=== PATIENT | male | born 1975 | race Caucasian/White ===

== ENCOUNTER 2023-05-06 11:50 | Observation (INO) | payer OTHER, SELFPAY ==
[2023-05-06] VITALS (8 sets, daily range): BP systolic 120–158; BP diastolic 71–100; PULSE 65–85; RESP 15–20; TEMP 36.4–36.6; O2SAT 94–98; BMI 36.1
--- NOTE | ~2023-05-06 | XR_ITS ---
EXAMINATION: XR chest 1V 05/06/2023 12:23 INDICATION: Double vision. Slurred speech. Weakness. PROCEDURE: AP view of the chest COMPARISON: No prior studies for comparison. FINDINGS: The lungs are clear. The cardiomediastinal silhouette is within normal limits. There are no pleural effusions. There is no pneumothorax suspected. IMPRESSION: 1: NO ACUTE CARDIOPULMONARY DISEASE. Reviewed, dictated and finalized at location B. AL KEEPER
--- NOTE | ~2023-05-06 | MR_ITS ---
EXAMINATION: MR brain/brain stem wo/w con, MR orbits face neck wo/w con DATE: 05/07/2023 08:04 INDICATION: Diplopia and blurred vision from the right eye. TECHNIQUE: 1. Magnetic resonance imaging (MRI) of the brain and brainstem was performed without and with 20 mL M ultihance intravenous contrast. Sequences included sagittal and axial T1-weighted SE, axial diffusion -weighted FS SE, , axial T2-weighted FLAIR, and axial T2-weighted FSE. Postcontrast axial and coronal T1-weighted SE was obtained. Apparent diffusion coefficient (ADC) maps were created. 2. MRI of the face and orbits was performed without and with 20 mL Multihance intravenous contrast ut ilizing the same contrast bolus. Small [id number] sequences of the orbits included coronal and axi al T2-weighted FS FSE and T1-weighted FSE and postcontrast small [id number] axial and coronal T1- weighted FS FSE. COMPARISON: Head CT and CT angiogram dated 05/06/2023 FINDINGS: There is a small focus of restricted diffusion and associated increased T2 signal in the left thalamu s consistent with acute infarct. There is a focus of susceptibility artifact in the medial anterior r ight frontal lobe which is most likely related to chronic microhemorrhage in setting of a cavernoma w ith an associated small developmental venous anomaly at this location on the post contrast imaging. N o acute intracranial hemorrhage or abnormal intracranial mass lesion. There are a few scattered small foci of nonspecific increased T2-weighted signal intensity in the cerebral white matter, predominant ly involving the deep and periventricular white matter which is within normal limits for age.. There are no intraparenchymal signal abnormalities seen on the other pulse sequences. The ventricles are sy mmetric and normal in size. There are no abnormal extra-axial fluid collections. Flow voids are seen in the cerebral arteries on the T2-weighted sequences consistent with their expected patency. Visuali zed orbits and soft tissues are unremarkable. The optic chiasm, pituitary and midline pituitary stalk appear unremarkable. Basal cisterns are patent. Centimeters in the right frontal developmental venou s anomaly there are no areas of abnormal enhancement on the post contrast images. IMPRESSION: 1. Small acute infarct in the left thalamus. 2. 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 Reviewed, dictated and finalized at location A. AID IMPRESSION: 1. Small acute infarct in the left thalamus. 2. 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
--- NOTE | ~2023-05-06 | CT_ITS ---
EXAMINATION: CTA BRAIN/CAROTID DATE: 05/06/2023 15:09 INDICATION: Diplopia, ataxia and difficulty finding words TECHNIQUE: Computed tomographic angiography (CTA) of the head and neck was performed with 100 mL Omni paque-350 intravenous contrast. Multiplanar reconstructions and maximum intensity projection 3D-recon structions of the carotid arteries and of the intracranial arteries were created by the technologist on a separate workstation. Automated exposure control and iterative reconstruction technique were emp loyed.The dose-length product was 1221.60 mGy-cm. COMPARISON: None. FINDINGS: Carotid arteries: Thoracic aorta is normal in caliber with no atherosclerotic plaque or dissection. There is no evident atherosclerotic plaque with 0% stenosis of the right and left carotid bulbs relative to normal dista l artery lumen diameter (NASCET criteria). The right vertebral artery is dominant with a diminutive l eft vertebral artery. Cervical soft tissues are unremarkable. Visualized upper lungs are clear. Mild cervical spondylosis. Intracranial arteries There is no hemodynamically significant stenosis in the vertebral, basilar and internal carotid arter ies. The right vertebral artery is dominant although still relatively small in diameter as is the bas ilic artery relative to the bilateral internal carotid arteries. The left posterior cerebral artery i s supplied via a patent left posterior communicating artery. The right posterior cerebral artery is s upplied primarily via a patent right posterior communicating artery with patent but diminutive right P1 segment. No definitive left P1 segment appreciated. The bilateral A1 segments are patent. There is also a patent anterior communicating artery. There are no aneurysms identified. There are also large r caliber patent bilateral posterior communicating arteries Cerebral arterial arborization appears sy mmetric. No abnormally enhancing brain lesions identified. IMPRESSION: 1. 0% stenosis of the right and left carotid bulbs relative to normal distal artery lumen diameter (N ASCET criteria). 2. Normal anatomic variation of the [place] as detailed above. No cerebral arterial hemodyna caridad significant stenosis, aneurysm or thrombosis. Reviewed, dictated and finalized at location A. AL CARE SPECIALIST IMPRESSION: 1. 0% stenosis of the right and left carotid bulbs relative to normal distal ar sara lumen diameter (NASCET criteria). 2. Normal anatomic variation of the [place] as detailed above. No cere bral arterial hemodynamic significant stenosis, aneurysm or thrombosis.
--- NOTE | ~2023-05-06 | CT_ITS ---
Non-contrast Head CT History: Slurred speech Technique: Axial non-contrast imaging of the brain was performed. Dose reduction technique was used on this scan by utilizing automated exposure control and iterative reconstruction technique. The dose -length product (DLP) was 605.33 mGy-cm. Findings: There is no evidence of intracranial hemorrhage, mass lesion, or acute infarct. Brain par enchyma appears normal. The ventricles and subarachnoid spaces are normal in size. The calvarium ap pears normal. The visualized paranasal sinuses and mastoid air cells are clear. Impression: No significant abnormality seen. Reviewed, dictated and finalized at location . NT PARTNER Impression: No significant abnormality seen.
--- NOTE | 2023-05-06 12:02 | ECG_ITS ---
Measurements Intervals [place] Rate: 70 P: 64 OK: 170 QRS: 3 QRSD: 96 T: 30 QT: 372 QTc: 404 Interpretive Statements SINUS RHYTHM INCOMPLETE RIGHT BUNDLE BRANCH BLOCK BORDERLINE R WAVE PROGRESSION, ANTERIOR LEADS BORDERLINE T WAVE ABNORMALITY- INF/LAT LEADS BASELINE ARTIFACT- II, III BORDERLINE ECG NO PREVIOUS ECG AVAILABLE FOR COMPARISON Electronically Signed On 05-06-2023 12:13:26 SPONGE MAKER by Aramis Thomas D.O.
[2023-05-06 12:16] LABS: Glucose Point of Care 88 mg/dl (65-105)
[2023-05-06 12:26] LABS: Basophils Absolute Auto 0.1 K/mm3 (0.0-0.1); Basophils Percent Auto 0.9 % (0.2-1.2); Eosinophils Absolute Auto 0.1 K/mm3 (0-0.3); Hematocrit 49.2 % (42.0-52.0); Hemoglobin 16.6 g/dL (14.0-18.0); Immature Granulocyte Absolute 0.03 K/mm3 (0.00-0.031); Immature Granulocyte Percent A 0.4 % (0-0.5); Lymphocytes Absolute Auto 2.45 K/mm3 (0.9-3.2); Lymphocytes Percent Auto 36.3 % (18.3-44.2); Mean Corpuscular HGB Conc 33.7 g/dl (32-36); Mean Corpuscular Hemoglobin 30.5 pg (26-34); Mean Corpuscular Volume 90.3 fl (80-100); Mean Platelet Volume 10.5 fl (7.4-10.4); Monocytes Absolute Auto 0.9 K/mm3 (0.1-0.6); Monocytes Percent Auto 12.7 % (2.6-8.5); Neutrophils Absolute Auto 3.3 K/mm3 (1.3-6.7); Neutrophils Percent Auto 48.7 % (45.5-73.1); Platelet Count Result 244 k/mm3 (150-375); Red Blood Count 5.45 M/mm3 (4.6-6.20); Red Cell Distribution Width 12.9 % (11.5-14.5); White Blood Count 6.8 K/mm3 (4.5-10.0)
[2023-05-06 12:36] LABS: Alanine Aminotransferase 75 U/L (6-50); Albumin Level 4.6 g/dL (3.5-5.1); Alkaline Phosphatase 66 U/L (38-126); Anion Gap 9 mmol/L (8-16); Aspartate Amino Transferase 42 U/L (17-59); Bilirubin,Total 0.6 mg/dL (0.2-1.3); Blood Urea Nitrogen 15 mg/dL (9-20); Calcium 9.2 mg/dL (8.4-10.2); Carbon Dioxide 25 mmol/L (22-30); Chloride 104 mmol/L (98-107); Estimated CRCL calculation 100 ml/min; Estimated Glomerular Filt Rate > 60; Glucose 86 mg/dL (65-110); INR 0.9; Prothrombin Time 12.5 Seconds (11.1-14.7); Sodium 138 mmol/L (137-145)
[2023-05-06 12:47] LABS: Troponin I < 0.012 ng/mL (0.000-0.034)
--- NOTE | 2023-05-06 14:40 | ED.NEUROSD ---
HPI - Neuro Symptoms/Deficit General Chief Complaint: Suspected CVA Stated Complaint: neuro sx Time Seen by Provider: 05/06/23 13:28 History of Present Illness HPI Narrative: Patient is a 48-year-old male with a history of hypertension for presenting with double vision. Patient's family is at bedside a and helps with the history. Patient was in his normal state of health last night before bed. He went to bed at 9:30 p.m.. He woke up today at 10:00 a.m.. His family noticed with he said several sentences today that did not make sense. He started complaining of double vision and a feeling of being off balance. States that the double vision goes away if he closes 1 eye. He denies headache, numbness or weakness, neck or back pain, fevers. Denies eye pain or swelling. His family thinks that the right side of his face looks slightly droopy. No slurred speech. No further complaints. Related Data Allergies Allergy/AdvReac Type Severity Reaction Status Date / Time Penicillins Allergy Unknown Rash Verified 05/06/23 12:11 Review of Systems Review of Systems: All systems reviewed & are unremarkable except as noted in HPI and below PMFSH Past Medical History Medical History (Updated 05/12/23 @ 12:08 by Anai Dietz MD) Acquired hypothyroidism Hypertension Surgical History Surgical History (Updated 05/06/23 @ 23:02 by Arielle Marrero PA-C) History of cholecystectomy History of partial thyroidectomy History of vasectomy Family History Family History Mother Hypertension Family history of malignant neoplasm of ovary Father Carcinoma of colon Family history of lung cancer Sibling No problems noted. Social History Social History (Updated 05/06/23 @ 23:02 by Arielle Marrero PA-C) Social History: Surrogate medical decision maker: Sheila Varma, spouse. Code status: Full code. Smoking status: Never smoker Second hand tobacco smoke exposure: No Alcohol intake: never Substance use: never Substance use type: does not use Do You Feel Safe in your Home?: Yes Lack of Transportation: No Lack of Food: Never True Current Housing: I Have Housing Concerned About Future Housing: No Difficulty Paying Gas/Electric Bills: No Difficulty Paying for Meds: No Currently Unemployed: No Education: Associate Degree Difficulty w/ Childcare or Family Care: No Living arrangements: with family Additional living arrangements comments: Lives with family in [place]. 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 Spiritual care concerns: No Exam Narrative: GENERAL: Well-appearing, well-nourished, and in no acute distress. HEAD: Normocephalic, atraumatic. EYES: PERRLA. unable to look up in either eye though more severe on L ENT: Nares clear, no rhinorrhea or epistaxis. Mucous membranes moist. NECK: Supple. CHEST: Clear to auscultation. No respiratory distress. HEART: Regular rate and rhythm ABDOMEN: Soft, nontender, nondistended EXTREMITIES: Normal range of motion. No edema. SKIN: Warm, dry, no rash. NEURO: Alert and oriented x3. No pronator drift, finger to nose is intact, 5/5 strength in all extremities, no sensory deficits, no aphasia or dysarthria PSYCH: Normal mood and affect. Course Vital Signs Vital signs: Vital Signs Temperature 97.9 F 05/06/23 11:52 Pulse Rate 67 05/06/23 11:52 Respiratory Rate 20 05/06/23 11:52 Blood Pressure 158/90 H 05/06/23 11:52 Pulse Oximetry 98 05/06/23 11:52 Oxygen Delivery Room Air 05/06/23 11:52 Temperature 98.4 F 05/08/23 04:44 Pulse Rate 86 05/08/23 12:00 Respiratory Rate 16 05/08/23 04:44 Blood Pressure 137/79 05/08/23 04:44 Pulse Oximetry 92 05/08/23 04:44 Oxygen Delivery Room Air 05/08/23 09:44 MDM - Neuro Symptoms/Deficit MDM Narrative
--- NOTE | 2023-05-06 18:52 | PC.NURSE ---
This patient, Oscar Varma, was admitted to Medical Room 342-01. Patient/family oriented to hospital policies and general routines including ID bracelet, bed and alarms, visiting hours, pain management, procedures, bathroom and other care routines, personal items, smoking policy, room service/diet, and visiting hours. Information on how to activate the Rapid Response Team has been discussed. Patient/Family are encouraged to report perceived risks to care and to ask questions if they do not understand what they are told or what they should do.
--- NOTE | 2023-05-06 20:01 | PM.IMHP ---
H&P: HPI History of Present Illness Date/Time: 05/06/23 21:00 Chief Complaint: Double vision. Narrative: This is a pleasant 48-year-old male with hypertension and history of benign thyroid nodule status post partial thyroidectomy no longer on levothyroxine who presented to the emergency department via private vehicle from home for evaluation of double vision. The patient provides the following history. He was in his usual state of health when he went to bed last night. This morning he awoke with double vision, feelings of being off balance, and mild speech issues (brief episode where he had difficulty speaking with reports of speaking gibberish). The double vision resolves when he closes 1 eye or the other. He denies overt vertigo, facial droop, difficulty swallowing, focal weakness, and paresthesias. He has never had similar symptoms. No history of head trauma, recent infection, eye surgery, strabismus, Graves disease, multiple sclerosis, myasthenia gravis, stroke, etc.. He also denies palpitations and sensations of irregular heartbeat. CMP and CBC were pretty unremarkable. CTA of the head and neck showed no significant findings and head CT was normal. He is being admitted in this setting for close monitoring and neurology consultation. Review of Systems Review of Systems: Twelve systems were reviewed and are negative except for as per HPI. [facility] Past Medical History Medical History (Updated 05/06/23 @ 23:03 by Arielle Marrero PA-C) Acquired hypothyroidism Hypertension Surgical History Surgical History (Updated 05/06/23 @ 23:02 by Arielle Marrero PA-C) History of cholecystectomy History of partial thyroidectomy History of vasectomy Family History Family History Mother Hypertension Family history of malignant neoplasm of ovary Father Carcinoma of colon Family history of lung cancer Sibling No problems noted. Social History Social History (Updated 05/06/23 @ 23:02 by Arielle Marrero PA-C) Social History: Surrogate medical decision maker: Sheila Varma, spouse. Code status: Full code. Smoking status: Never smoker Second hand tobacco smoke exposure: No Alcohol intake: never Substance use: never Substance use type: does not use Do You Feel Safe in your Home?: Yes Lack of Transportation: No Lack of Food: Never True Current Housing: I Have Housing Concerned About Future Housing: No Difficulty Paying Gas/Electric Bills: No Difficulty Paying for Meds: No Currently Unemployed: No Education: Associate Degree Difficulty w/ Childcare or Family Care: No Living arrangements: with family Additional living arrangements comments: Lives with family in [place]. 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 Spiritual care concerns: No Meds Home Medications and Allergies Home Medications Medication Instructions Recorded Confirmed Type losartan 50 mg tablet 50 mg PO DAILY #90 tabs 02/15/23 05/06/23 Rx Allergies Allergy/AdvReac Type Severity Reaction Status Date / Time Penicillins Allergy Unknown Rash Verified 05/06/23 12:11 Vital Signs Vital Signs - 24 hr 05/06/23 11:52 05/06/23 12:33 05/06/23 13:07 Temperature 97.9 F Pulse Rate 67 65 74 Respiratory Rate 20 16 15 Blood Pressure 158/90 H 141/100 H 128/89 Pulse Oximetry 98 95 97 Oxygen Delivery Room Air 05/06/23 15:40 05/06/23 16:05 05/06/23 17:53 Temperature Pulse Rate 68 74 85 Respiratory Rate 18 17 20 Blood Pressure 155/100 H 120/71 155/84 H Pulse Oximetry 94 96 94 Oxygen Delivery Exam Narrative: General: Well-developed male in the semi-Rodriguez position in bed in no acute distress. Weight: 114.1 kg. BMI: 36.1. HEENT: Normocephalic, atraumatic. PERRL, EOMI. Sclera anicteric. Conjunctiva mildly injected. Oral mucosa moist. Neck:
[2023-05-07] VITALS (8 sets, daily range): BP systolic 137–163; BP diastolic 79–99; PULSE 61–80; RESP 15–16; TEMP 36.4–36.7; O2SAT 92–94
--- NOTE | 2023-05-07 | ECHO_ITS ---
Patient Info Name: Oscar Varma Age: 48 years : 1975 Gender: Male Ht: 63 in Wt: 240 lbs BSA: 2.26 m2 HR: 61 bpm BP: 155 / 94 mmHg Heart Rhythm: Sinus Rhythm Technical Quality: Good Exam Date: 05/07/2023 9:01 AM Exam Location: Echo Lab Patient Status: Inpatient Admit Date: 05/06/2023 Staff Ordering Physician: James Campbell MD Jewelry Dipper: Evelin Yu RDCS Attending Provider: James Campbell MD Exam Type: CA echo doppler color flow Study Info Indications - diplopia Complete two-dimensional, color flow and Doppler transthoracic echocardiogram is performed. Summary 1. Complete two-dimensional, color flow and Doppler transthoracic echocardiogram is performed. 2. Left ventricular chamber dimension is normal. 3. Left ventricular systolic function is normal, estimated at 55-60%. 4. There is moderately increased left ventricular wall thickness. 5. The left ventricular diastolic function is grade I diastolic dysfunction. 6. There is mild mitral valve regurgitation. 7. The mitral valve has thickened leaflets. 8. There is mild tricuspid valve regurgitation. 9. The aortic root size at the sinus of Valsalva is mildly dilated. 10. The prox ascending aorta size is moderately dilated. Left Ventricle Left ventricular chamber dimension is normal. Left ventricular systolic function is normal, estimated at 55-60%. There is moderately increased left ventricular wall thickness. The left ventricular diastolic function is grade I diastolic dysfunction. Right Ventricle Right ventricular chamber dimension is normal. Right ventricular systolic function is normal. Left Atria Left atrial chamber dimension is normal. Right Atria Right atrial chamber dimension is normal. Atrial Septum Intact interatrial septum visualized by color flow imaging. Aortic Valve The aortic valve is trileaflet. There is mild aortic valve sclerosis. There is no aortic valve stenosis. There is trace aortic valve regurgitation. Pulmonic Valve The pulmonic valve is normal. There is no pulmonic valve stenosis. There is trace pulmonic regurgitation. Mitral Valve The mitral valve has thickened leaflets. There is no mitral valve stenosis. There is mild mitral valve regurgitation. Tricuspid Valve The tricuspid valve leaflets are normal. There is no significant tricuspid valve stenosis. There is mild tricuspid valve regurgitation. No pulmonary hypertension, estimated pulmonary arterial systolic pressure is 22 mmHg. Pericardium/Pleural The pericardium appears normal. There is no pericardial effusion. Inferior Vena Cava Normal inferior vena cava with >50% collapse upon inspiration consistent with normal right atrial pressure, 10 mmHg. Aorta The aortic root size at the sinus of Valsalva is mildly dilated. The prox ascending aorta size is moderately dilated. Left Ventricular Outflow Tract Name Value Normal LVOT 2D LVOT Diameter 2.0 cm LVOT Doppler LVOT Peak Gradient 3 mmHg LVOT Mean Gradient 2 mmHg LVOT VTI 22 cm LVOT VTI/AV VTI Ratio 0.9 LVOT Stroke Volume 70 m
--- NOTE | 2023-05-07 07:25 | PC.NURSE ---
Patient off of unit to MRI, telemetry on standby
[2023-05-07 08:57] LABS: Hemoglobin A1C 6.3 % (<5.7)
--- NOTE | 2023-05-07 09:40 | PM.IMPN ---
Progress Note: A&P Assessment and Plan (1) CVA (cerebral vascular accident): Code(s): I63.9 - Cerebral infarction, unspecified Status: Acute Assessment and Plan: Patient presents with complaints of garbled speech, ataxia and diplopia. Patient awoke with symptoms after being sleep for about [address] showed no significant findings. CTA of the head and neck showed no acute findings. He did have a normal anatomic variation of the [place]. EKG reviewed showing normal sinus rhythm with incomplete right bundle branch block and poor R-wave progression. Echocardiogram ordered and will change this to add bubble study. Brain MRI showing small acute infarct in left thalamus as well as like cavernous malformation in the medial anterior right frontal lobe Patient present to the ED. he does not appear that he received aspirin. Will give full-dose aspirin this morning. Start baby aspirin tomorrow Check A1c, lipid panel, B12, TSH. ALT slightly elevated so will add hepatitis-C. Add Lipitor. Neurology consult. PT OT to assess balance and functionality. (2) Diplopia: Code(s): H53.2 - Diplopia Status: Acute Assessment and Plan: Most likely related to above. Symptoms improving. Continue follow (3) Hypertension: Code(s): I10 - Essential (primary) hypertension Status: Acute Assessment and Plan: Patient's blood pressure was reviewed on 05/07 Blood pressure mildly elevated. Will allow for permissive HTN given the new CVA. Will monitor with plans to resume his losartan in 1-2 days. Hydralazine available as needed. (4) Acquired hypothyroidism: Code(s): E03.9 - Hypothyroidism, unspecified Status: Acute Assessment and Plan: Patient had a benign thyroid nodule status post partial thyroidectomy that resulted in acquired hypothyroidism. He is no longer on levothyroxine. Will check TSH (5) Cavernous malformation: Code(s): Q28.3 - Other malformations of cerebral vessels Status: Acute Assessment and Plan: MRI showing cavernous malformation and associated development venous anomaly in the medial anterior right frontal lobe. Rarely these can result in hemorrhage. Spoke with neuro who agreed with full (loading) dose ASA then baby ASA Monitor closely. Plan DVT prophylax -SCD Code status -full Subjective Date/time seen: 05/07/23 09:40 Interval history: 48yo male with HTn and HLD here for acute onset of diplopia and ataxia. Symptoms are improved today. Still having diplopia that is intermittent now. He is up walking in the room and to the bathroom. Still feels mildly ataxic. No fever, nausea or vomiting. Denies alcohol drug use. No family history of autoimmune disorders. He has never had this before. His is ill with cold symptoms with recent onset. Exam Narrative: AF 97.6 163/99 71 16 94% ra Gen - NARD HEENT - PERRL, EOMI, no facial asymmetry. Chest - CTA bilaterally, nml RR CV - RRR S1/S2 Abd - Soft, NT/ND, Positive BS Ext - No pedal edema Neuro - Alert and oriented. No focal weakness. speech clear. heel to castaneda intact. has difficulty bilaterally with rapid alternating movements. Psych - Nml mood and affect Skin - Warm and dry Objective Data Vital Signs Vital Signs: Vital Signs - 24 hr 05/06/23 11:52 05/06/23 12:33 05/06/23 13:07 Temperature 97.9 F Pulse Rate 67 65 74 Respiratory Rate 20 16 15 Blood Pressure 158/90 H 141/100 H 128/89 Pulse Oximetry 98 95 97 Oxygen Delivery Room Air 05/06/23 15:40 05/06/23 16:05 05/06/23 17:53 Temperature Pulse Rate 68 74 85 Respiratory Rate 18 17 20 Blood Pressure 155/100 H 120/71 155/84 H Pulse Oximetry 94 96 94 Oxygen Delivery 05/06/23 21:40 05/06/23 20:00 05/07/23 00:00 Temperature 97.5 F L Pulse Rate 77 80 70 Respiratory Rate 18 Blood Pressure 155/94 H Pulse Oximetry 95 Oxygen Delivery 05/07/23
[2023-05-07 09:51] LABS: Alanine Aminotransferase 71 U/L (6-50); Albumin Level 4.3 g/dL (3.5-5.1); Alkaline Phosphatase 60 U/L (38-126); Anion Gap 9 mmol/L (8-16); Aspartate Amino Transferase 39 U/L (17-59); Bilirubin,Total 0.7 mg/dL (0.2-1.3); Blood Urea Nitrogen 18 mg/dL (9-20); Calcium 8.9 mg/dL (8.4-10.2); Carbon Dioxide 23 mmol/L (22-30); Chloride 105 mmol/L (98-107); Cholesterol 208 mg/dL (0-200); Estimated CRCL calculation 100 ml/min; Estimated Glomerular Filt Rate > 60; Glucose 100 mg/dL (65-110); HDL Direct 35 mg/dL; Sodium 137 mmol/L (137-145); Triglycerides 174 mg/dL (<150)
[2023-05-07 09:52] LABS: Folic Acid 11.2 ng/mL (2.76->20)
[2023-05-07 10:01] LABS: LDL Cholesterol Direct 132 mg/dL
[2023-05-07] MEDS: ATORVASTATIN 40 MG TABLET PO (10:28)
[2023-05-07] MEDS: ASPIRIN 81 MG CHEWABLE TABLET 324 MG PO (10:28)
--- NOTE | 2023-05-07 11:01 | WPDNEURCNPN ---
Assessment and Plan Assessment and plan (1) Cavernous malformation: Code(s): Q28.3 - Other malformations of cerebral vessels Status: Acute (2) CVA (cerebral vascular accident): Code(s): I63.9 - Cerebral infarction, unspecified Status: Acute (3) Diplopia: Code(s): H53.2 - Diplopia Status: Acute (4) Hypertension: Code(s): I10 - Essential (primary) hypertension Status: Acute (5) Acquired hypothyroidism: Code(s): E03.9 - Hypothyroidism, unspecified Status: Acute Plan 1. Diplopia which at this stage is completely disappeared though it was documented by the 2nd examiner as well 2. Hypertension 3. History of hypothyroidism as well. as the MRI of the brain is only consistent with small acute infarct in left thalamus along with the cavernoma on but both the lesions will not be able to explain is complain of double vision and head and neck CTA does not document any aneurysm, possibility of myasthenia gravis as documented by by Dr. Grover definitely needs to be ruled out testing for the acetylcholine receptor antibodies. In the meantime he will need echocardiogram as well. MRI of the brain is negative for any involvement of the posterior fossa. Consult date: 05/07/23 HPI: Oscar Varma is a 48 year old male Admitted to the hospital through the emergency room with ongoing history of hypertension and with complaints of double vision. Patient reportedly was in his normal state of health the night before he went to bed at 9:30 p.m. and he woke up at 10:00 a.m. when he was making no sense on the conversation and complained of double vision and felt as if he has no control on the balance he also mentioned that his double vision was disappearing with closure of 1 eye he had no associated neck pain though his right side of the face looks somewhat droopy to the family. He is known to be allergic to penicillin, his past history is consistent with the hypothyroidism, hypertension, and fasting hyper glycemia, is never a smoker but currently alcohol intake, initial exam in the emergency room revealed no focal neurological deficit no ataxia or dysmetria though he was having difficulty in looking up in either eye more so on the left, vital signs were with blood pressure 158/90, CBC was normal BMP was normal and he has been taking losartan 50mg daily at the time of this visit, routine labs revealed ALT 75 repeat 71 in addition to triglycerides 174 and cholesterol 208 also hemoglobin A1c 6.3, his TSH is 5.7, initial head CT and head and neck CTA both studies were normal and MRI of the brain and brainstem without and with contrast also including MRI of the orbit face neck documented small acute infarct in left thalamus, incidental finding of 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 also in the medial anterior right frontal lobe Review of Systems Review of Systems: All systems reviewed & are unremarkable except as noted in HPI and below PMFSH Past Medical History Medical History (Updated 05/07/23 @ 09:45 by James Campbell MD) Acquired hypothyroidism Hypertension Surgical History Surgical History (Updated 05/06/23 @ 23:02 by Arielle Marrero PA-C) History of cholecystectomy History of partial thyroidectomy History of vasectomy Family History Family History Mother Hypertension Family history of malignant neoplasm of ovary Father Carcinoma of colon Family history of lung cancer Sibling No problems noted. Social History Social History (Updated 05/06/23 @ 23:02 by Arielle Marrero PA-C) Social History: Surrogate medical decision maker: Sheila Varma, spouse. Code status: Full code. Smoking status: Never smoker Second hand tobacco smoke exposure: No Alcohol intake: never Substance use: never Substance use type: does not use Do You Feel Safe in your Home?: Yes Lack of Transpo
[2023-05-07 11:20] LABS: Free T4 Free Thyroxine Reflex 0.75 ng/dL (0.78-2.19)
[2023-05-07 11:52] LABS: Hepatitis C Virus Antibody Negative (Negative)
[2023-05-08] VITALS: PULSE 71
[2023-05-08 04:00] VITALS: PULSE 59
[2023-05-08 04:44] VITALS: BP 137/79; PULSE 79; RESP 16; TEMP 36.9; O2SAT 92
--- NOTE | 2023-05-08 07:01 | PM.IMPN ---
Progress Note: A&P Assessment and Plan (1) CVA (cerebral vascular accident): Code(s): I63.9 - Cerebral infarction, unspecified Status: Acute Assessment and Plan: Patient presents with complaints of garbled speech, ataxia and diplopia. Patient awoke with symptoms after being sleep for about [address] showed no significant findings. CTA of the head and neck showed no acute findings. He did have a normal anatomic variation of the [place]. EKG reviewed showing normal sinus rhythm with incomplete right bundle branch block and poor R-wave progression. Echocardiogram 05/07/2023: EF 55-60% moderately increased left ventricular wall thickness grade 1 diastolic dysfunction proximal ascending aorta moderately dilated Brain MRI showing small acute infarct in left thalamus as well as like cavernous malformation in the medial anterior right frontal lobe Patient present to the ED. he does not appear that he received aspirin. This was followed by full dose of aspirin and 81 mg after that A1c 6.3 LDL 132 ALT slightly elevated. hepatitis-C screen negative Add Lipitor. Neurology consulted. PT OT to assess balance and functionality. (2) Diplopia: Code(s): H53.2 - Diplopia Status: Acute Assessment and Plan: Most likely related to above. Symptoms improving. Continue follow Possibility of myasthenia gravis per Neurology and testing for acetyl choline Receptor antibodies ordered (3) Hypertension: Code(s): I10 - Essential (primary) hypertension Status: Acute Assessment and Plan: Patient's blood pressure was reviewed on 05/07 Blood pressure mildly elevated. Will allow for permissive HTN given the new CVA. Will monitor with plans to resume his losartan in 1-2 days. Hydralazine available as needed. (4) Acquired hypothyroidism: Code(s): E03.9 - Hypothyroidism, unspecified Status: Acute Assessment and Plan: Patient had a benign thyroid nodule status post partial thyroidectomy that resulted in acquired hypothyroidism. He is no longer on levothyroxine. TSH normal (5) Cavernous malformation: Code(s): Q28.3 - Other malformations of cerebral vessels Status: Acute Assessment and Plan: MRI showing cavernous malformation and associated development venous anomaly in the medial anterior right frontal lobe. Rarely these can result in hemorrhage. Spoke with neuro who agreed with full (loading) dose ASA then baby ASA Monitor closely. Plan DVT prophylax -SCD Code status -full Subjective Date/time seen: 05/08/23 07:01 Interval history: 48yo male with HTn and HLD here for acute onset of diplopia and ataxia admitted on 05/06/2023. Review of Systems Review of Systems: All systems reviewed & are unremarkable except as noted in HPI and below Exam Narrative: Gen - NARD HEENT - PERRL, EOMI, no facial asymmetry. Chest - CTA bilaterally, nml RR CV - RRR S1/S2 Abd - Soft, NT/ND, Positive BS Ext - No pedal edema Neuro - Alert and oriented. No focal weakness. speech clear. heel to castaneda intact. has difficulty bilaterally with rapid alternating movements. Psych - Nml mood and affect Skin - Warm and dry Objective Data Vital Signs Vital Signs: Vital Signs - 24 hr 05/07/23 10:28 05/07/23 13:50 05/07/23 14:13 Temperature 98.1 F Pulse Rate 78 Respiratory Rate 15 Blood Pressure 161/90 H Pulse Oximetry 92 Oxygen Delivery Room Air Room Air 05/07/23 12:00 05/07/23 16:00 05/07/23 19:51 Temperature 98 F Pulse Rate 72 76 77 Respiratory Rate 16 Blood Pressure 137/79 Pulse Oximetry 94 Oxygen Delivery 05/07/23 20:00 05/07/23 20:00 05/08/23 00:00 Temperature Pulse Rate 80 71 Respiratory Rate Blood Pressure Pulse Oximetry Oxygen Delivery Room Air 05/08/23 04:44 05/08/23 04:00 Temperature 98.4 F Pulse Rate 79 59 L Respiratory Rate 16 Blood Pressure 137/79
[2023-05-08 08:00] VITALS: PULSE 67
[2023-05-08] MEDS: ATORVASTATIN 40 MG TABLET PO (09:44)
[2023-05-08] MEDS: ASPIRIN 81 MG CHEWABLE TABLET PO (09:44)
[2023-05-08 12:00] VITALS: PULSE 86
--- NOTE | 2023-05-08 12:20 | PM.DS ---
DS: Admitting Diagnosis Discharge Date 05/08/23 Admitting Diagnosis diplopia DS: Discharge Diagnosis Discharge Diagnosis (1) CVA (cerebral vascular accident): Code(s): I63.9 - Cerebral infarction, unspecified Status: Acute (2) Diplopia: Code(s): H53.2 - Diplopia Status: Acute (3) Hypertension: Code(s): I10 - Essential (primary) hypertension Status: Acute (4) Acquired hypothyroidism: Code(s): E03.9 - Hypothyroidism, unspecified Status: Acute (5) Cavernous malformation: Code(s): Q28.3 - Other malformations of cerebral vessels Status: Acute DS: Summary Hospital Course Hospital Course: Patient presents with complaints of garbled speech, ataxia and diplopia.? Patient awoke with symptoms after being sleep for about [address] showed no significant findings.? CTA of the head and neck showed no acute findings.? He did have a normal anatomic variation of the [place]. EKG reviewed showing normal sinus rhythm with incomplete right bundle branch block and poor R-wave progression. Echocardiogram 05/07/2023:? EF 55-60% moderately increased left ventricular wall thickness grade 1 diastolic dysfunction proximal ascending aorta moderately dilated Brain MRI showing small acute infarct in left thalamus as well as like cavernous malformation in the medial anterior right frontal lobe Patient present to the ED. he does not appear that he received aspirin.? This was followed by full dose of aspirin and 81 mg after that A1c 6.3 LDL 132 ALT slightly elevated.? hepatitis-C screen negative Add Lipitor.? Neurology consulted. PT OT to assess balance and functionality which he cleared. he still had persistnet diplopia. possibiliyof myasthenia gravis per neurology and testing with acetyl choline recentpro antibodies done. he will need to follow up with neurology as op basis. he should also be eevalauted by ophthalmology for evaluation for local region. HTN: resume losartan HYpothyroidism: Patient had a benign thyroid nodule status post partial thyroidectomy that resulted in acquired hypothyroidism. He is no longer on levothyroxine. TSH normal # Cavernous malformation: ?MRI showing cavernous malformation and associated development venous anomaly in the medial anterior right frontal lobe. Rarely these can result in hemorrhage. Spoke with neuro who agreed with full (loading) dose ASA then baby ASA Monitor closely. 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 Chest - CTA bilaterally, nml RR CV - RRR S1/S2 Abd - Soft, NT/ND, Positive BS Ext - No pedal edema Neuro - Alert and oriented. No focal weakness. speech clear. heel to castaneda intact. has difficulty bilaterally with rapid alternating movements. Psych - Nml mood and affect Skin - Warm and dry DS: Data Imaging Radiologist's impression: ITS Impressions Chest X-Ray 05/06/23 12:25 IMPRESSION: 1: NO ACUTE CARDIOPULMONARY DISEASE. Head CT 05/06/23 12:27 Impression: No significant abnormality seen. Head/Neck CTA 05/06/23 15:15 IMPRESSION: 1. 0% stenosis of the right and left carotid bulbs relative to normal distal artery lumen diameter (NASCET criteria). 2. Normal anatomic variation of the [place] as detailed above. No cerebral arterial hemodynamic significant stenosis, aneurysm or thrombosis. Brain MRI 05/07/23 08:15 IMPRESSION: 1. Small acute infarct in the left thalamus. 2. 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 Orbits/Face/Neck MRI 05/07/23 08:15 IMPRESSION: 1. Small acute infarct in the left thalamus. 2. 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 Discharge Plan Dis
[2023-05-14 17:32] LABS: Acetylchol Receptor Binding Ab <0.30 nmol/L
== END 2023-05-08 13:40 | disposition home or self-care (01) ==
LOC: ANHED 13:57 → ANH3MED 18:03
PROVIDERS: Emergency Medicine; Psychiatry & Neurology Neurology; Admitting Provider Internal Medicine; Emergency Provider Emergency Medicine; PCP Family Medicine; Visit Provider Internal Medicine
DX: I63.9 Cerebral infarction, unspecified (principal); H53.2 Diplopia; I11.9 Hypertensive heart disease without heart failure; E89.0 Postprocedural hypothyroidism; I45.10 Unspecified right bundle-branch block; Q28.3 Other malformations of cerebral vessels; I08.3 Combined rheumatic disorders of mitral, aortic and tricuspid valves; E78.5 Hyperlipidemia, unspecified; Z20.822 Contact with and (suspected) exposure to COVID-19; F10.90 Alcohol use, unspecified, uncomplicated; Z79.899 Other long term (current) drug therapy; Z82.49 Family history of ischemic heart disease and other diseases of the circulatory system
CPT/HCPCS: 36415; 70450; 70496; 70498; 70543; 70553; 71045; 80053; 80061; 82607; 82746; 82948; 83036; 84238; 84439; 84443; 84484; 85025; 85610; 85730; 86803; 93005; 93306; 97161; 97165; 99285; A9270; A9577; G0378; Q9967

== ENCOUNTER 2023-05-21 15:11 | Outpatient (CLI) | payer OTHER, SELFPAY ==
[2023-05-21 16:18] LABS: INR 0.9; Partial Thromboplastin Time 26.4 SECONDS (22.3-36.8); Prothrombin Time 12.9 Seconds (11.1-14.7)
[2023-05-27 14:18] LABS: Lipoprotein A <10 nmol/L (<75)
[2023-05-27 15:02] LABS: Factor V (Leiden) Mutation NEGATIVE
[2023-05-28 21:12] LABS: Homocysteine 13.2 umol/L (<11.4)
[2023-05-30 13:39] LABS: Anti Cardio Antibody IgM <2.0 MPL-U/mL (<20.0); Anti Cardiolipin Antibody IgA <2.0 APL-U/mL (<20.0); Anti Cardiolipin Antibody IgG <2.0 GPL-U/mL (<20.0)
== END 2023-05-21 15:12 | disposition home or self-care (01) ==
LOC: ANHLAB 15:14
PROVIDERS: PCP Family Medicine; Visit Provider Student in an Organized Health Care Education/Training Program
DX: I63.9 Cerebral infarction, unspecified (principal)
CPT/HCPCS: 36415; 81240; 81241; 81291; 83090; 83695; 85240; 85303; 85306; 85307; 85610; 85613; 85730; 86146; 86147

== ENCOUNTER 2023-07-01 14:42 | Outpatient (CLI) | payer OTHER, SELFPAY ==
--- NOTE | ~2023-07-01 | CT_ITS ---
EXAMINATION: CTA chest DATE: 07/01/2023 15:14 INDICATION: Aneurysm of the ascending aorta TECHNIQUE: Computed tomography angiography (CTA) of the chest was performed with 100 mL Omnipaque-350 intravenous contrast timed to evaluate the pulmonary arteries. Coronal maximum intensity projection 3D-reconstructions were created by the technologist. Automated exposure control and iterative reconst ruction technique were employed. Exam dose: 716.20 mGy-cm total exam DLP. COMPARISON: 05/06/2023 AP chest FINDINGS: The ascending aorta measures up to 4.1 cm diameter. Normal approximate 2.4 cm diameter of t he aortic arch and descending thoracic aorta. No thoracic aortic dissection. No hilar or mediastinal mass lesion or lymphadenopathy. There is substernal left thyroid extension. Normal heart size. Coronary artery calcifications. No pericardial or pleural effusion. No pulmonary infiltrate or consolidation or pulmonary mass lesion. Normal morphology of the adrenal glands. Hepatic steatosis. Diverticulosis of the colon. No suspicious osteolytic or osteoblastic lesions. IMPRESSION: Moderately dilated ascending aorta, measuring 4.1 cm diameter; no aortic dissection Coronary artery calcification Reviewed, dictated and finalized at [facility]. Reviewed, dictated and finalized at location [facility].
[2023-07-01 15:00] LABS: Estimated Glomerular Filt Rate 54
== END 2023-07-01 14:43 | disposition home or self-care (01) ==
PROVIDERS: PCP Family Medicine; Visit Provider Internal Medicine Cardiovascular Disease
DX: I25.10 Atherosclerotic heart disease of native coronary artery without angina pectoris (principal); I71.21 Aneurysm of the ascending aorta, without rupture
CPT/HCPCS: 71275; Q9967

== ENCOUNTER 2023-08-14 08:35 | Outpatient (CLI) | payer OTHER, SELFPAY ==
[2023-08-14 10:33] LABS: Alanine Aminotransferase 86 U/L (16-63); Albumin Level 4.2 g/dL (3.4-5.0); Alkaline Phosphatase 64 U/L (46-116); Anion Gap 6 mmol/L (4-12); Aspartate Amino Transferase 30 U/L (15-37); Bilirubin,Total 0.7 mg/dL (0.00-1.00); Blood Urea Nitrogen 17 mg/dL (7-18); Calcium 9.4 mg/dL (8.5-10.1); Carbon Dioxide 34 mmol/L (21-32); Chloride 102 mmol/L (98-108); Cholesterol 116 mg/dL (0-200); Estimated Glomerular Filt Rate 58; Glucose 87 mg/dL (70-99); HDL Direct 34 mg/dL (40-60); LDL Cholesterol Calculated 59 mg/dL (<130); Osmolality Calculated 294 mOsm/kg (285-295); Potassium 3.9 mmol/L (3.5-5.1); Sodium 142 mmol/L (136-145); Total Protein 7.1 g/dL (6.4-8.2); Triglycerides 117 mg/dL (0-150)
== END 2023-08-14 08:36 | disposition home or self-care (01) ==
LOC: CHSLAB 08:37
PROVIDERS: PCP Family Medicine; Visit Provider Internal Medicine Cardiovascular Disease
DX: E78.5 Hyperlipidemia, unspecified (principal)
CPT/HCPCS: 36415; 80053; 80061

== ENCOUNTER 2024-04-28 09:35 | Outpatient (CLI) | payer OTHER, SELFPAY ==
--- NOTE | ~2024-04-28 | MR_ITS ---
EXAMINATION: MR brain/brain stem wo con DATE: 04/28/2024 10:02 INDICATION: Other malformations of cerebral vessels. TECHNIQUE: Magnetic resonance imaging (MRI) of the brain and brainstem was performed without intraven ous contrast. COMPARISON: Brain MRI 05/07/2023, head CT 05/06/2023 FINDINGS: In the right frontal lobe, there is a 6 mm lesion of increased T2-weighted signal intensity and decreased susceptibility-weighted signal intensity. There is an old infarct in the left thalamus . There is no acute ischemic infarct. The ventricles are normal in size. There is mucosal thickening in the paranasal sinuses and dependent fluid in right maxillary sinus. The mastoid air cells are norm al. The orbits are normal. IMPRESSION: 1. Stable 6 mm lesion of old blood products in right frontal lobe, likely a cavernoma. 2. Old lacunar infarct in the left thalamus. Reviewed, dictated and finalized at location [facility]. 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 Stable 6 mm lesion of old blood products in right frontal lobe, likely a cav ernoma. 2. Old lacunar infarct in the left thalamus.
== END 2024-04-28 09:36 | disposition home or self-care (01) ==
PROVIDERS: PCP Neurological Surgery; Visit Provider Neurological Surgery
DX: G93.89 Other specified disorders of brain (principal); Z86.73 Personal history of transient ischemic attack (TIA), and cerebral infarction without residual deficits; Q28.3 Other malformations of cerebral vessels
CPT/HCPCS: 70551

== ENCOUNTER 2025-01-14 11:02 | Outpatient (CLI) | payer OTHER, SELFPAY ==
[2025-01-14 11:28] LABS: Hematocrit 46.4 % (42.0-52.0); Hemoglobin 15.5 g/dL (14.0-18.0); Mean Corpuscular HGB Conc 33.4 g/dl (32-36); Mean Corpuscular Hemoglobin 29.8 pg (26-34); Mean Corpuscular Volume 89.1 fl (80-100); Platelet Count Result 230 k/mm3 (150-375); Red Blood Count 5.21 M/mm3 (4.6-6.20); White Blood Count 6.3 K/mm3 (4.5-10.0)
--- OUTSIDE RECORDS SUMMARY | 2025-01-14 11:34 | XMS_ITS | Clinical Summary ---
Author Organization [facility] Radha [facility]ikt Address [address] [place] [address] Care Team Providers Care Retail Consultant Name Role Phone Blayne Hardy MD Primary Care Provider [phone] Allergies Active Allergy Reactions Criticality Noted Date Comments Penicillins Rash Low 06/06/2023 Medications aspirin (ECOTRIN EC) 81 mg Tablet, Delayed Release (E.C.) Take 81 mg by mouth daily. Active losartan (COZAAR) 50 mg tablet Take 50 mg by mouth daily. Active atorvastatin (LIPITOR) 40 mg tablet Take 40 mg by mouth daily. Active clopidogreL (PLAVIX) 75 mg Tablet Take 75 mg by mouth daily. Active therapeutic multivitamin (THERA TAB) Tablet Take 1 Tablet by mouth daily. 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 Family History Medical History Relation Name Comments No Known Problems Brother No Known Problems Child 1 No Known Problems Child 2 Colon Cancer Father Liver Cancer Father Ovarian Cancer Mother Relation Name Status Comments Brother Alive Child 1 Alive Child 2 Alive Father Mother Social History Tobacco Use Types Packs/Day Years Used Date Smoking Tobacco: Never Smokeless Tobacco: Never Tobacco Cessation:Counseling Given: Not Answered Alcohol Use Standard Drinks/Week Comments Yes 0 (1 standard drink = 0.6 oz pur e alcohol) socially Sex and Gender Information Value Date Recorded Sex Assigned at Not on file Legal Sex Male 11:02 AM ETHICS MANAGER Gender Identity Not on file Sexual Orientation Not on file Last Filed Vital Signs Vital Sign Reading Time Taken Comments Blood Pressure 129/79 06/06/2023 10:24 AM ETHICS MANAGER Pulse 64 06/06/2023 10:18 AM ETHICS MANAGER Temperature - - Respiratory Rate 14 06/06/2023 10:1 8 AM ETHICS MANAGER Oxygen Saturation 95% 06/06/2023 10: 18 AM ETHICS MANAGER Inhaled Oxygen Concentration - - Weight 110.9 kg (244 lb 9.6 oz) 024 10:18 AM ETHICS MANAGER Height 177.8 cm (5' 10) 06/06/2023 10: 18 AM ETHICS MANAGER Body Mass Index 35.1 06/06/2023 10:18 AM ETHICS MANAGER Plan of Treatment Health Maintenance Due Date Last Done Comments DTAP/TDAP/TD VACCINES (1 - Tdap) 1993 HEPATITIS B VACCINES (1 of 3 - 19+ 3-dose series) 1993 COLORECTAL SCREENING 2019 Colorectal Cancer Screening 2019 FIT-DNA Q 3 years 2019 FIT/FOBT Q 1 year 2019 Flex Sig/CT Colonography Q 5 years 2019 ZOSTER VACCINE (1 of 2) 2024 INFLUENZA VACCINE (#1) 2024 01/19/2016, 2012 Insurance [employer] CHOICE POS II Care Teams Retail Consultant Relationship Specialty Start Date End Date Blayne Hardy MD [address] [place] [address] PCP - General Family Practice 06/04/23
--- OUTSIDE RECORDS SUMMARY | 2025-01-14 11:34 | XMS_ITS | Clinical Summary ---
Author Organization [facility] Address [address] [place] [address] Phone Care Team Providers Care Fur Storage Clerk Name Role Phone Angelo Schmitt MD Unavailable [phone] Provider, None Primary Care Provider Unavailabl e Allergies Active Allergy Reactions Criticality Noted Date Comments Penicillins Rash Medications naproxen (NAPROSYN) 500 MG Tablet Take 1 Tab by mouth daily as needed. Reported on 05/03/2016 6 Active cyclobenzaprine (FLEXERIL) 10 MG Tablet Take 1 Tab by mouth daily as needed. Reported on 05/03/2016 6 Active HYDROcodone-chevy taminophen (NORCO) 5-325 MG Tablet Take 1-2 Tabs by mouth every 6 hours as needed. 40 Tab 0 6 Active Additional Information Patient not taking.Reported on 05/03/2016 docusate sodium (COLACE) 100 MG Capsule Take 1 Cap by mouth 2 times daily as needed for Constipation. 60 Cap 3 6 Active Additional Information Patient not taking.Reported on 05/03/2016 Active Problems Problem Noted Date Diagnosed Date Costochondritis 01/19/2016 Thyroid nodule 01/19/2016 Immunizations Immunization Administration Dates Next Due Influenza Vaccine greater than 3 yrs 04/15/2012 PUR FLU 3+ YRS PRES FREE QUAD IM 01/19/2016 Family History Medical History Relation Name Comments Cancer Father colon Cancer Mother ovarian Relation Name Status Comments Father Mother Social History Tobacco Use Types Packs/Day Years Used Date Smoking Tobacco: Never Smokeless Tobacco: Never Tobacco Cessation:Counseling Given: Yes Alcohol Use Standard Drinks/Week Comments No 0 (1 standard drink = 0.6 oz pur e alcohol) Sex and Gender Information Value Date Recorded Sex Assigned at Not on file Legal Sex Male 8:49 PM CDT Gender Identity Not on file Sexual Orientation Not on file Last Filed Vital Signs Vital Sign Reading Time Taken Comments Blood Pressure 140/86 05/03/2016 2:22 PM CUSTOMER CARE ASSISTANT Pulse 70 05/03/2016 2:22 PM CUSTOMER CARE ASSISTANT Temperature 36.6 C (97.9 F) 05/03/2016 2:22 PM CUSTOMER CARE ASSISTANT Respiratory Rate 16 05/03/2016 2:22 PM CUSTOMER CARE ASSISTANT Oxygen Saturation 95% 04/10/2016 5:40 PM CUSTOMER CARE ASSISTANT Inhaled Oxygen Concentration - - Weight 102.5 kg (226 lb) 05/03/2016 2:22 PM CUSTOMER CARE ASSISTANT Height 177.8 cm (5' 10) 05/03/2016 2:22 PM CUSTOMER CARE ASSISTANT Body Mass Index 32.43 05/03/2016 2:22 PM CUSTOMER CARE ASSISTANT Plan of Treatment Health Maintenance Due Date Last Done Comments TdaP Immunization 1974 Hepatitis B Immunization (1 of 3 - 19+ 3-dose series) 1993 Cologuard 2019 Immunochemical Fecal Occult Blood 2019 Pneumococcal Immunization (5 0+ years) (1 of 1 - PCV) 2024 Zoster Immunization (1 of 2) 2024 Influenza Immunization (#1) 12/14/202409/2015, 04/15/2012 SARS-COV-2 Immunization (3 - 2024- season) 2024 07/07/2020, 06/16/2020 Colonoscopy 12/10/2027 12/09/2017 Colorectal Cancer Screening 12/10/2027 Respiratory Syncytial Virus (RSV) Immunization (Adult) (1 - 1-dose 75+ series) 2049 Hepatitis C Virus (HCV) Screening Completed 02/15/2016 Human Papillomavirus (HPV) Immunization Aged Out No longer eligible b ased on patient's age to complete this topic Meningococcal Immunization (ACWY) Aged Out No longer eligible b ased on patient's age to complete this topic Rotavirus Immunization Aged Out No lo nger eligible based on patient's age to complete this topic Procedures Procedure Name Priority Date/Time Associated Diagnosis Comments HM COLONOSCOPY Routine 12/09/2017 HEPATITIS PANEL ACUTE (AHP) Routine 02/15/2016 5:56 PM CDT Icterus from Last 3 Months or Most Recently Relevant to Health Maintenance Results * COLONOSCOPY (12/09/2017) us Dallas Sinha MD PROCEDURE/MINOR SURGICAL ORDER LINDA Final Result * HEPATITIS PANEL ACUTE (AHP) (02/15/2016 5:56 PM CDT) HEPATITIS A IGM ANTIBODY NON DETECTED NON DETECTED 02/16/2016 11:02 PM CDT [facility] Comment: IGM Antibodies to HAV not detected. Does not exclude early acute or recovered HAV infection. HEP B CORE AB (IGM) NON DETECTED NON DETECTED 02/16/2016 11:02 PM CDT [facility] Comment: IGM anti-HBC not detected. Does not exclude the possibility of exposure to or infection with HBV. HEPATITIS B SURFACE ANTIGEN NON DETECTED NON DETECTED 02/16/2016 11:02 PM CDT [facility] hepatitis C antibody 0.15 <1 S/CO 02/16/2016 11:02 PM CDT [facility] Comment: Signal/Cutoff ratio < 0.79 is Nondetected Signal/Cutoff ratio 0.80-0.99 is Grayzone Signal/Cutoff ratio > 0.99 is Detected Supplemental assays are recommended if signal/cutoff ratio is >/=1.00. Signal/cutoff ratio result >/= 5.00 is 97% predictive of positivity for recombinant immunoblot assay (RIBA) and will be reported to the [place] [facility] as required. Blood specimen (specimen) Venipuncture / Unknown 02/15/2016 5:56 PM CDT 02/15/2016 5:56 PM CDT us Selam Yoon PAC HEMATOLOGY ORDERABLES Fi nal Result [facility] [address] [place] [address], [place] from Last 3 Months or Most Recently Relevant to Health Maintenance Care Teams Fur Storage Clerk Relationship Specialty Start Date End Date Provider, None [place] PCP - General 12/10/17 Angelo Schmitt MD General Surgery 03/09/16
[2025-01-14 11:49] LABS: Hemoglobin A1C 5.9 % (<5.7)
[2025-01-14 11:51] LABS: Iron 135 ug/dL (49-181)
[2025-01-14 11:52] LABS: Alanine Aminotransferase 106 U/L (6-50); Albumin Level 4.6 g/dL (3.5-5.1); Alkaline Phosphatase 62 U/L (38-126); Anion Gap 9 mmol/L (4-12); Aspartate Amino Transferase 61 U/L (17-59); Bilirubin,Total 0.7 mg/dL (0.2-1.3); Blood Urea Nitrogen 17 mg/dL (9-20); Calcium 8.9 mg/dL (8.4-10.2); Carbon Dioxide 27 mmol/L (22-30); Chloride 102 mmol/L (98-107); Cholesterol 150 mg/dL (0-200); Estimated Glomerular Filt Rate > 60; Glucose 98 mg/dL (65-110); HDL Direct 33 mg/dL; Potassium 3.8 mmol/L (3.4-5.0); Sodium 138 mmol/L (137-145); Total Protein 7.8 g/dL (6.3-8.2); Triglycerides 126 mg/dL (<150)
[2025-01-14 12:01] LABS: Percent Iron Saturation 39 % (20-50)
[2025-01-14 12:10] LABS: Free T4 Free Thyroxine 0.81 ng/dL (0.78-2.19)
[2025-01-14 12:27] LABS: Prostate Specific Antigen 1.1 ng/mL (< OR = 4.0); Thyroid Stimulating Hormone 3.870 uIU/mL (0.465-4.680)
== END 2025-01-14 11:03 | disposition home or self-care (01) ==
LOC: ANHLAB 11:03
PROVIDERS: PCP Family Medicine; Visit Provider Nurse Practitioner Family
DX: Z12.5 Encounter for screening for malignant neoplasm of prostate (principal); I10 Essential (primary) hypertension; I63.9 Cerebral infarction, unspecified; R79.89 Other specified abnormal findings of blood chemistry; E78.5 Hyperlipidemia, unspecified; E55.9 Vitamin D deficiency, unspecified; R73.03 Prediabetes
CPT/HCPCS: 36415; 80053; 80061; 82306; 83036; 83540; 83550; 84153; 84439; 84443; 85027; G0103

== ENCOUNTER 2025-01-20 11:15 | Outpatient (CLI) | payer OTHER, SELFPAY ==
[2025-01-20 12:15] LABS: Alanine Aminotransferase 98 U/L (6-50); Albumin Level 4.6 g/dL (3.5-5.1); Alkaline Phosphatase 61 U/L (38-126); Aspartate Amino Transferase 54 U/L (17-59); Bilirubin,Total 0.7 mg/dL (0.2-1.3); Total Protein 7.7 g/dL (6.3-8.2)
[2025-01-20 12:47] LABS: Hepatitis B Surface Antigen Negative (Negative)
[2025-01-20 12:53] LABS: HAV RESULT Negative (Negative); Hepatitis B Core IgM Result Negative (Negative)
[2025-01-21 07:08] LABS: GGT 39 IU/L (0-65)
== END 2025-01-20 11:16 | disposition home or self-care (01) ==
LOC: ANHLAB 11:16
PROVIDERS: PCP Family Medicine; Visit Provider Nurse Practitioner Family
DX: R74.8 Abnormal levels of other serum enzymes (principal); E55.9 Vitamin D deficiency, unspecified
CPT/HCPCS: 36415; 80074; 80076; 82306; 82977